=== PATIENT | female | born 1930 | race Caucasian/White ===

== ENCOUNTER 2018-04-22 08:25 | Inpatient (IN) | payer MEDICARE, OTHER ==
[~2018-04-22] VITALS: Ht 167.6 cm; Wt 77.1 kg
[~2018-04-22 08:25] MED LIST: ASPI-605 PO; Acetaminophen PO; BENA5TAB5 PO; BISA5TAB13 PO; CLON0.5T PO; Clindamycin Hcl PO; GLYC-16 RC; MAGN296S PO; MAGN400O6 PO; METO-295 PO; METO-357 PO; OMEP20TA5 PO; OXYC1TAB PO; PITA1TAB PO; RANI-473 PO; VITAMIN A; VITAMIN D; ZOLP5TAB2 PO
--- NOTE | 2018-04-22 08:54 | NUR ---
MD is at bedside evaluating the patient.
[2018-04-22] MEDS ORDERED: KETOROLAC TROMETHAMINE 15 MG INJ IV ONE (09:00)
[2018-04-22] MEDS ORDERED: METOCLOPRAMIDE HCL 10 MG/2 ML VIAL IV ONE (09:00)
[2018-04-22] MEDS ORDERED: IV NORMAL SALINE 1000 ML BAG IV ONE (09:00)
[2018-04-22] MEDS ORDERED: KETOROLAC TROMETHAMINE 15 MG INJ ONE (09:04)
[2018-04-22] MEDS ORDERED: METOCLOPRAMIDE HCL 10 MG/2 ML VIAL ONE (09:05)
[2018-04-22 09:26] LABS: BASOPHILS # (AUTO) 0.1 K/uL (0.0-8.0); BASOPHILS % (AUTO) 0.7 % (0.0-2.0); EOSINOPHILS # (AUTO) 0.1 K/uL (0.0-0.7); EOSINOPHILS % (AUTO) 1.2 % (0.0-7.0); HEMOGLOBIN 13.9 g/dL (10.9-14.3); LYMPHOCYTES # (AUTO) 1.7 K/uL (20.0-40.0); MEAN CORPUSCULAR HEMOGLOBIN 31.9 uug (24.7-32.8); MEAN CORPUSCULAR HGB CONC 34 g/dL (32.3-35.6); MEAN CORPUSCULAR VOLUME 94.4 fL (75.5-95.3); MONOCYTES # (AUTO) 0.9 K/uL (2.0-10.0); MONOCYTES % (AUTO) 10.5 % (0.0-11.0); NEUTROPHILS # (AUTO) 5.5 K/uL (1.8-8.9); NEUTROPHILS % (AUTO) 66.6 % (38.5-71.5); PLATELET COUNT (AUTO) 252 K/uL (179-408); RED BLOOD CELL COUNT(AUTO) 4.34 MIL/uL (3.63-4.92); WHITE BLOOD COUNT (AUTO) 8.3 K/uL (3.8-11.8)
[2018-04-22 09:35] LABS: ALANINE AMINOTRANSFERASE 21 U/L (14-59); ALKALINE PHOSPHATASE 87 U/L (50-136); ASPARTATE AMINOTRANSFERASE 12 U/L (15-37); BILIRUBIN,DIRECT 0.2 mg/dL (0.0-0.2); BILIRUBIN,TOTAL 0.6 mg/dL (0.2-1.0); CARBON DIOXIDE 28 mmol/L (21-32); CHLORIDE 101 mmol/L (98-107); GLUCOSE 106 mg/dL (74-106); LIPASE 59 U/L (73-393); POTASSIUM 4.3 mmol/L (3.5-5.1); TOTAL PROTEIN, SERUM 7.5 g/dL (6.4-8.2); UREA NITROGEN, BLOOD 21 mg/dL (7-18)
--- NOTE | 2018-04-22 10:01 | NUR ---
"I feel like freezing and cold all over. My oxygen feels low. Is my blood pressure low?" Patient expressed that she also feels like getting a panic attack, MD notified. Extra warm blankets on. Listening ears provided. Bearing witness done. Vital signs rechecked. Reassurances given.
--- NOTE | 2018-04-22 10:04 | NUR ---
Patient is now extremely anxious. MD notified. Deep breathing exercises initiated for anxiety. Monitored closely.
[2018-04-22] MEDS ORDERED: diphenhydrAMINE 50 MG/1 ML VIAL ONE (10:11)
[2018-04-22] MEDS ORDERED: diphenhydrAMINE 50 MG/1 ML VIAL IV ONE (10:15)
[2018-04-22] MEDS ORDERED: PROZAC (10:25)
[2018-04-22] MEDS ORDERED: SUCR1TAB31 PO (10:25)
--- NOTE | 2018-04-22 10:25 | NUR ---
MEDICATION RECONCILIATION NOTE: Home medication list update with limited information provided by pt and daughter. Pt was unable to find her home medication list, daughter stated she will bring in a current list of medications later.
--- NOTE | 2018-04-22 10:35 | NUR ---
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
--- NOTE | 2018-04-22 10:42 | NUR ---
PATIENT IS PAIN FREE AT THIS TIME. Patient is resting comfortably on gurney with eyes closed.
[2018-04-22] MEDS ORDERED: ONDANSETRON 4 MG/2 ML VIAL IV PRN ×2 (11:00→11:15)
[2018-04-22] MEDS ORDERED: hydrALAZINE HCL 25 MG TABLET PO PRN ×2 (11:00→11:15)
[2018-04-22] MEDS ORDERED: ACETAMINOPHEN 325 MG TABLET PO PRN (11:00)
[2018-04-22] MEDS ORDERED: MORPHINE SULFATE 2 MG/1 ML DISP.SYRIN IV PRN (11:00)
--- NOTE | 2018-04-22 11:07 | NUR ---
sbar report received from [facility].
[2018-04-22] MEDS ORDERED: MORPHINE SULFATE 4 MG/1 ML DISP.SYRIN IV PRN (11:15)
--- NOTE | 2018-04-22 11:24 | NUR ---
88 yr old female being admitted to Tele floor for abdominal pains, telemetry status. c/o abdominal pain times 1 month with nausea and vomiting like bileous material, aao times 3, on 02 2 l in, admission orders done by KE [facility]. IV saline lock via right hand #22. valeri urine spec for UA. from ED to room 217 at 1123 am/ transported by [address] Addendum: 04/22/18 at 1124 by CHAY BOLAÑOS RN Amended: Links added.
[2018-04-22 11:45] VITALS: BP 174/65
[2018-04-22] MEDS ORDERED: SUCRALFATE 1 G TABLET PO SCH (13:00)
[2018-04-22] MEDS: SUCRALFATE 1 G TABLET PO SCH ×2 (13:30→16:21)
--- NOTE | 2018-04-22 13:34 | NUR ---
medicated for BP 174/65 Addendum: 04/22/18 at 1334 by CHAY BOLAÑOS RN Amended: Links added.
[2018-04-22 14:38] LABS: *BILIRUBIN,URIN NEGATIVE (NEGATIVE); *BLOOD, URINE Trace-lysed (NEGATIVE); *CLARITY,URINE SLIGHTLY CLOUDY (CLEAR); *COLOR,URINE YELLOW (YELLOW); *KETONES,URINE NEGATIVE (NEGATIVE); *PROTEIN,URINE NEGATIVE (NEGATIVE); *UROBILINOGEN,URINE 0.2 E.U./dl (NORMAL); LEUKOCYTE ESTERASE ,URINE 2+ (NEGATIVE); NITRITE, URINE NEGATIVE (NEGATIVE); UGLUCOSE NEGATIVE (NEGATIVE)
[2018-04-22 15:00] LABS: RBC,URINE 0-3 /HPF (0-3)
[2018-04-22 15:01] LABS: BACTERIA,URINE MANY /HPF (NONE SEEN); SQUAMOUS EPITHELIAL CELL,UR MANY /HPF (NONE SEEN)
[2018-04-22] MEDS ORDERED: LEVOFLOXACIN 500 MG/D5W 500 MG in PREMIXED 1 EACH IV SCH (15:15)
[2018-04-22 15:36] VITALS: BP 154/55
--- NOTE | 2018-04-22 15:51 | NUR ---
patient wanted to be discharged. Patient did not want to wait in a small room (getting claustrophobic ) while waiting for an EGD procedure on Tuesday. Call to KE [facility]. orders received. Addendum: 04/22/18 at 1552 by CHAY BOLAÑOS RN Amended: Links added. Addendum: 04/22/18 at 1626 by CHAY BOLAÑOS RN Amended: Links added.
[2018-04-22] MEDS ORDERED: LEVOFLOXACIN 500 MG/D5W 500 MG in PREMIXED 1 EACH IV ONE (16:00)
[2018-04-22] MEDS ORDERED: IV NORMAL SALINE 250 ML IV PRN (16:15)
[2018-04-22] MEDS: LORAZEPAM 2 MG/1 ML VIAL IV PRN (16:16)
--- NOTE | 2018-04-22 16:16 | NUR ---
medicated with ativan for anxiety.daughter Carol at the bedside, trying to convince patient to stay Addendum: 04/22/18 at 1645 by CHAY BOLAÑOS RN Amended: Links added.
[2018-04-22] MEDS: AMLODIPINE 5 MG TABLET PO SCH (16:20)
[2018-04-22] MEDS: PANTOPRAZOLE SODIUM 40 MG TABLET.DR PO SCH (16:21)
--- NOTE | 2018-04-22 16:26 | NUR ---
refused carafate Addendum: 04/22/18 at 1626 by CHAY BOLAÑOS RN Amended: Links added.
[2018-04-22] MEDS ORDERED: PANTOPRAZOLE SODIUM 40 MG TABLET.DR PO SCH (17:00)
[2018-04-22] MEDS ORDERED: RANITIDINE HCL 75 MG PO SCH (17:00)
[2018-04-22 20:17] VITALS: BP 151/54
[2018-04-22] MEDS ORDERED: BISACODYL 10 MG SUPP.RECT RC PRN (21:00)
[2018-04-22] MEDS: ZOLPIDEM 5 MG TABLET PO PRN (21:10)
[2018-04-23 00:12] VITALS: BP 124/57
[2018-04-23 04:56] VITALS: BP 136/58
[2018-04-23] MEDS: PANTOPRAZOLE SODIUM 40 MG TABLET.DR PO SCH ×2 (05:31→17:02)
--- NOTE | 2018-04-23 07:00 | NUR ---
Resting comfortably, no acute resp distress. Vital signs WNL Sinus linsey on the monitor.
--- NOTE | 2018-04-23 08:00 | NUR ---
Pt alert oriented x4, discussed plan of care regarding safety and pain management. Pt agreeable with plan of care. Pt states she had small bowel movement. Offered suppository, pt refused. No signs of acute distress. Will continue to monitor pt
[2018-04-23] MEDS: SUCRALFATE 1 G TABLET PO SCH ×3 (08:59→17:01)
[2018-04-23] MEDS: ASPIRIN EC 81 MG TABLET.DR PO SCH (08:59)
[2018-04-23] MEDS: AMLODIPINE 5 MG TABLET PO SCH (09:00)
[2018-04-23] MEDS ORDERED: Medication Not On Formulary EA (Pitavastatin Calcium (Livalo) 1 MG) PO SCH (09:00)
[2018-04-23] MEDS ORDERED: CLONAZEPAM 0.5 MG TABLET PO SCH ×3 (09:00→21:00)
[2018-04-23] MEDS ORDERED: BENAZEPRIL HCL 5 MG TABLET PO SCH ×2 (09:00)
[2018-04-23] MEDS ORDERED: ASPIRIN EC 81 MG TABLET.DR PO SCH (09:00)
[2018-04-23 11:12] VITALS: BP 141/63
[2018-04-23 11:35] LABS: BASOPHILS # (AUTO) 0.1 K/uL (0.0-8.0); EOSINOPHILS % (AUTO) 0.7 % (0.0-7.0); HEMATOCRIT 40.4 % (31.2-41.9); HEMOGLOBIN 13.8 g/dL (10.9-14.3); LYMPHOCYTES # (AUTO) 1.5 K/uL (20.0-40.0); LYMPHOCYTES % (AUTO) 20.4 % (20.5-51.5); MEAN CORPUSCULAR HEMOGLOBIN 32.3 uug (24.7-32.8); MEAN CORPUSCULAR HGB CONC 34 g/dL (32.3-35.6); MEAN CORPUSCULAR VOLUME 94.7 fL (75.5-95.3); MONOCYTES # (AUTO) 0.7 K/uL (2.0-10.0); MONOCYTES % (AUTO) 9.1 % (0.0-11.0); NEUTROPHILS # (AUTO) 5.2 K/uL (1.8-8.9); NEUTROPHILS % (AUTO) 68.8 % (38.5-71.5); PLATELET COUNT (AUTO) 248 K/uL (179-408); RED BLOOD CELL COUNT(AUTO) 4.26 MIL/uL (3.63-4.92); WHITE BLOOD COUNT (AUTO) 7.6 K/uL (3.8-11.8)
[2018-04-23 11:41] LABS: ALANINE AMINOTRANSFERASE 18 U/L (14-59); ALKALINE PHOSPHATASE 84 U/L (50-136); ASPARTATE AMINOTRANSFERASE 10 U/L (15-37); BILIRUBIN,TOTAL 0.5 mg/dL (0.2-1.0); CARBON DIOXIDE 28 mmol/L (21-32); CHLORIDE 104 mmol/L (98-107); CREATININE 0.9 mg/dL (0.6-1.3); GLUCOSE 106 mg/dL (74-106); PHOSPHOROUS 3.1 mg/dL (2.5-4.9); POTASSIUM 4.2 mmol/L (3.5-5.1); TOTAL PROTEIN, SERUM 7.3 g/dL (6.4-8.2); UREA NITROGEN, BLOOD 17 mg/dL (7-18)
[2018-04-23 11:49] LABS: THYROID STIMULATING HORMONE 2.072 mIU/mL (0.358-3.740)
[2018-04-23 12:01] LABS: CHOLESTEROL 177 mg/dL (<200); HDL CHOLESTEROL 53 mg/dL (40-60); TRIGLYCERIDES 114 MG/DL (30-150)
[2018-04-23 15:42] VITALS: BP 143/63
[2018-04-23] MEDS ORDERED: LEVOFLOXACIN 250MG /D5W 250 MG in PREMIXED 1 EACH IV SCH (16:00)
[2018-04-23] MEDS: LORAZEPAM 2 MG/1 ML VIAL IV PRN (18:08)
--- NOTE | 2018-04-23 18:55 | NUR ---
Ativan effective. Pt much more calmer . Pt states that she is less anxious. Notified pt EGD scheduled @ 900am. Pt NPO after midnight consent signed for egd.
[2018-04-23 19:00] VITALS: BP 160/78
--- NOTE | 2018-04-23 19:45 | NUR ---
PATIENT IN BED ALERT ORIENTED, NO SOB NO CHEST PAIN, NO COMPLAIN OF PAIN AT THIS TIME, CONTINENT OF BOWEL AND BLADDER, ASSIST WITH TOILETING. CALL LIGHT WITHIN REACH.
[2018-04-23] MEDS: BENAZEPRIL HCL 5 MG TABLET PO SCH (21:00)
[2018-04-23] MEDS ORDERED: BENAZEPRIL HCL 10 MG TABLET ONE (21:26)
[2018-04-23] MEDS: ACETAMINOPHEN 325 MG TABLET PO PRN (22:09)
[2018-04-23] MEDS: ZOLPIDEM 5 MG TABLET PO PRN (22:10)
[2018-04-24] VITALS: BP 143/64
[2018-04-24 04:00] VITALS: BP 103/47
[2018-04-24 05:47] LABS: BASOPHILS # (AUTO) 0.1 K/uL (0.0-8.0); BASOPHILS % (AUTO) 0.7 % (0.0-2.0); EOSINOPHILS # (AUTO) 0.1 K/uL (0.0-0.7); EOSINOPHILS % (AUTO) 1.6 % (0.0-7.0); HEMOGLOBIN 13.2 g/dL (10.9-14.3); LYMPHOCYTES # (AUTO) 2.4 K/uL (20.0-40.0); LYMPHOCYTES % (AUTO) 27.5 % (20.5-51.5); MEAN CORPUSCULAR HGB CONC 34 g/dL (32.3-35.6); MEAN CORPUSCULAR VOLUME 94.8 fL (75.5-95.3); MONOCYTES % (AUTO) 11.6 % (0.0-11.0); NEUTROPHILS # (AUTO) 5.1 K/uL (1.8-8.9); NEUTROPHILS % (AUTO) 58.6 % (38.5-71.5); PLATELET COUNT (AUTO) 237 K/uL (179-408); RED BLOOD CELL COUNT(AUTO) 4.12 MIL/uL (3.63-4.92); WHITE BLOOD COUNT (AUTO) 8.7 K/uL (3.8-11.8)
[2018-04-24 06:28] LABS: ALANINE AMINOTRANSFERASE 20 U/L (14-59); ALKALINE PHOSPHATASE 75 U/L (50-136); ASPARTATE AMINOTRANSFERASE 11 U/L (15-37); BILIRUBIN,TOTAL 0.4 mg/dL (0.2-1.0); CARBON DIOXIDE 26 mmol/L (21-32); CHLORIDE 105 mmol/L (98-107); CREATININE 1.1 mg/dL (0.6-1.3); GLUCOSE 95 mg/dL (74-106); MAGNESIUM 1.9 mg/dL (1.8-2.4); PHOSPHOROUS 3.8 mg/dL (2.5-4.9); POTASSIUM 4.1 mmol/L (3.5-5.1); TOTAL PROTEIN, SERUM 6.8 g/dL (6.4-8.2); UREA NITROGEN, BLOOD 25 mg/dL (7-18)
[2018-04-24] MEDS ORDERED: FLUOXETINE HCL 10 MG CAPSULE PO SCH (09:00)
[2018-04-24] MEDS ORDERED: CLONAZEPAM 0.5 MG TABLET PO SCH (09:00)
[2018-04-24] MEDS ORDERED: FLUOXETINE HCL 20 MG CAPSULE PO SCH (09:00)
[2018-04-24] MEDS: SUCRALFATE 1 G TABLET PO SCH ×4 (09:00→17:00)
[2018-04-24] MEDS ORDERED: ONDANSETRON 4 MG/2 ML VIAL ONE ×2 (09:59→10:09)
[2018-04-24] MEDS ORDERED: IV LACTATED RINGERS SOLUTION 1,000 ML IV PRN (10:00)
[2018-04-24] MEDS: BENAZEPRIL HCL 5 MG TABLET PO SCH (10:47)
[2018-04-24] MEDS: AMLODIPINE 5 MG TABLET PO SCH (10:47)
[2018-04-24] MEDS: ASPIRIN EC 81 MG TABLET.DR PO SCH (10:48)
[2018-04-24] MEDS: PANTOPRAZOLE SODIUM 40 MG TABLET.DR PO SCH ×2 (10:48→17:00)
[2018-04-24] MEDS: ACETAMINOPHEN 325 MG TABLET PO PRN (10:50)
[2018-04-24 11:25] VITALS: BP 134/62
[2018-04-24] MEDS ORDERED: NITROFURANTOIN/NITROFURAN MAC 100 MG CAPSULE PO SCH (14:30)
[2018-04-24 14:43] LABS: *OCCULT BLOOD STOOL NEGATIVE (NEGATIVE)
[2018-04-24 15:22] VITALS: BP 119/53
[2018-04-24] MEDS ORDERED: METO-356 PO ×2 (16:34→16:43)
[2018-04-24] MEDS ORDERED: PANT40TA2 PO ×2 (16:34→16:43)
[2018-04-24] MEDS ORDERED: NITR100C11 PO (16:34)
[2018-04-24] MEDS ORDERED: FLUO-119 PO (16:34)
[2018-04-24] MEDS ORDERED: LACT1CAP59 PO (16:42)
[2018-04-24] MEDS ORDERED: PROPOFOL 200 MG/20 ML BOTTLE IV ONE (17:54)
[2018-04-24] MEDS ORDERED: LIDOCAINE HCL 1% 20 ML VIAL MC ONE (17:54)
[2018-04-24] MEDS ORDERED: IV LACTATED RINGERS SOLUTION 1,000 ML BAG IV ONE (17:54)
[2018-04-24] MEDS ORDERED: SIMETHICONE 40 MG/0.6 ML 30 ML BOTTLE MC ONE (17:54)
--- NOTE | 2018-04-24 18:00 | NUR ---
PT DISCHARGED TODAY. DISCHARGE INSTRUCTIONS GIVEN. PATIENT VERBALIZES UNDERSTANDING, PRESCRIPTION GIVEN TO PATIENT. PHARMACISTS DISCUSSED NEW MEDICATIONS WITH PT REGARDING PURPOSE AND SIDE EFFECTS. DIETITIAN EDUCATED PATIENT REGARDING FOODS TO EAT FOR ESOPHAGITIS. INSTRUCTED PT TO FOLLOW UP WITH PRIMARY AND GI DOCTOR. PT TOLERATED FOOD SOFT DIET, NO NAUSEA, NO VOMITING. D/C IV. NO SHORTNESS OF BREATH UPON D/C.
== END 2018-04-24 17:55 | disposition home or self-care (01) | DRG 690 ==
LOC: ER 08:25 → TELE 11:12
PROVIDERS: ADMIT Internal Medicine; ATTEND Internal Medicine
PROC: 0DB78ZX Excision of Stomach, Pylorus, Via Natural or Artificial Opening Endoscopic, Diagnostic (ICD-10-PCS; 2018-04-24)
PROC: 0DB68ZX Excision of Stomach, Via Natural or Artificial Opening Endoscopic, Diagnostic (ICD-10-PCS; principal; 2018-04-24 09:00)
DX: N39.0 Urinary tract infection, site not specified (principal); E87.1 Hypo-osmolality and hyponatremia; K21.0 Gastro-esophageal reflux disease with esophagitis; F32.9 Major depressive disorder, single episode, unspecified; I10 Essential (primary) hypertension; B95.2 Enterococcus as the cause of diseases classified elsewhere; E78.5 Hyperlipidemia, unspecified; M79.7 Fibromyalgia; Z87.11 Personal history of peptic ulcer disease; Z87.891 Personal history of nicotine dependence; Z88.0 Allergy status to penicillin; F41.9 Anxiety disorder, unspecified; R00.1 Bradycardia, unspecified; K57.90 Diverticulosis of intestine, part unspecified, without perforation or abscess without bleeding; N28.1 Cyst of kidney, acquired; I34.1 Nonrheumatic mitral (valve) prolapse; G62.9 Polyneuropathy, unspecified; K31.7 Polyp of stomach and duodenum; K31.89 Other diseases of stomach and duodenum; K44.9 Diaphragmatic hernia without obstruction or gangrene; M48.00 Spinal stenosis, site unspecified; F43.10 Post-traumatic stress disorder, unspecified; E66.3 Overweight; J45.909 Unspecified asthma, uncomplicated; K58.9 Irritable bowel syndrome, unspecified; Z91.14 Patient's other noncompliance with medication regimen; Z86.19 Personal history of other infectious and parasitic diseases
CPT/HCPCS: 36415; 70030-TC; 71045; 83605; 83690; 83735; 84100; 84443; 85025; 85730; 87040; 87077; 87086; 88342; 93005; A4217; A4663; J1200; J1885; J1956; J2060; J2270; J2405; J2765; J3490; J7030; J7050; J7120

== ENCOUNTER 2018-09-15 09:53 | Emergency (ER) | payer MEDICARE, OTHER ==
[~2018-09-15] VITALS: Ht 167.6 cm; Wt 77.1 kg
[~2018-09-15 09:53] MED LIST changes: -Acetaminophen PO; -BISA5TAB13 PO; -Clindamycin Hcl PO; +FLUO-119 PO; -GLYC-16 RC; +LACT1CAP59 PO; -MAGN296S PO; -MAGN400O6 PO; -METO-295 PO; +METO-356 PO; -METO-357 PO; +NITR100C11 PO; -OMEP20TA5 PO; -OXYC1TAB PO; +PANT40TA2 PO; +SUCR1TAB31 PO; -VITAMIN A; -VITAMIN D
--- NOTE | 2018-09-15 10:07 | NUR ---
PT IS IN ROOM #1B. DR AREVALO EVALUATED THE PT.
[2018-09-15 10:37] LABS: HEMATOCRIT 36.3 % (31.2-41.9); HEMOGLOBIN 12.2 g/dL (10.9-14.3); MEAN CORPUSCULAR HEMOGLOBIN 31.1 uug (24.7-32.8); MEAN CORPUSCULAR HGB CONC 34 g/dL (32.3-35.6); MEAN CORPUSCULAR VOLUME 92.7 fL (75.5-95.3); PLATELET COUNT (AUTO) 283 K/uL (179-408); RED BLOOD CELL COUNT(AUTO) 3.92 MIL/uL (3.63-4.92); WHITE BLOOD COUNT (AUTO) 7.4 K/uL (3.8-11.8)
[2018-09-15 10:44] LABS: CARBON DIOXIDE 28 mmol/L (21-32); CHLORIDE 103 mmol/L (98-107); GLUCOSE 112 mg/dL (74-106); UREA NITROGEN, BLOOD 19 mg/dL (7-18)
[2018-09-15 10:55] LABS: ALANINE AMINOTRANSFERASE 18 U/L (14-59); ALKALINE PHOSPHATASE 81 U/L (50-136); ASPARTATE AMINOTRANSFERASE 10 U/L (15-37); BILIRUBIN,TOTAL 0.4 mg/dL (0.2-1.0); TOTAL PROTEIN, SERUM 6.9 g/dL (6.4-8.2)
[2018-09-15 11:01] LABS: LYMPHOCYTES % (MANUAL) 12 % (20-40); MONOCYTES % (MANUAL) 9 % (2-10); NEUTROPHILS % (MANUAL) 79 % (42-75)
--- NOTE | 2018-09-15 11:18 | NUR ---
PT WAS D/C'd TO HOME. D/C INSTRUCTIONS GIVEN TO THE PT AND TO HER DOUGHTERS. NO NOSE BLEEDING AT THE TIME OF DISCHARGE.
[2018-09-15 11:19] VITALS: BP 139/78
== END 2018-09-15 11:20 | disposition home or self-care (01) ==
LOC: ER 09:53
DX: R04.0 Epistaxis (principal); I10 Essential (primary) hypertension; K21.9 Gastro-esophageal reflux disease without esophagitis; Z88.0 Allergy status to penicillin; Z79.82 Long term (current) use of aspirin; Z79.899 Other long term (current) drug therapy
CPT/HCPCS: 30901; 36415; 85025; 85730; A4217; A4663

== ENCOUNTER 2018-09-16 13:00 | Emergency (ER) | payer MEDICARE, OTHER ==
[~2018-09-16] VITALS: Ht 170.2 cm; Wt 77.6 kg
--- NOTE | 2018-09-16 13:41 | NUR ---
Patient discharged to home in stable conditon. Written and verbal after care instructions given to patient and patient's daughter. Patient verbalizes understanding of instructions. No nose bleeding seen after the removal of the rhinorocket.
== END 2018-09-16 13:42 | disposition home or self-care (01) ==
LOC: ER 13:00
DX: R04.0 Epistaxis (principal); I10 Essential (primary) hypertension; K21.9 Gastro-esophageal reflux disease without esophagitis; Z88.0 Allergy status to penicillin; Z79.82 Long term (current) use of aspirin; Z79.899 Other long term (current) drug therapy
CPT/HCPCS: A4663